=== PATIENT | female | born 1935 | race American Indian/Alaskan Native ===

== ENCOUNTER 2018-01-10 03:00 | Inpatient (IN) | payer MEDICARE ==
[2018-01-10] MEDS ORDERED: BENADRYL PO ONE (03:10)
[2018-01-10] MEDS ORDERED: PEPCID IV ONE (03:10)
--- NOTE | 2018-01-10 03:25 | Emergency Department Report ---
HPI - General Time Seen by Provider: 01/10/18 03:10 - HPI HPI: Room 23 The patient is an 82-year-old female presented with the chief complaint of lip swelling. The patient takes lisinopril states this evening at approximately 21: 30 after drinking a glass of water she began noticing swelling of her lips. The patient states over time the swelling worsen or did not improve prompting her to come to the emergency department. Patient denies shortness of breath or pain of any type Location: Lips Duration: Constant since 21:30 Quality: Swelling/angioedema Severity: Moderate Modifying factors: [see above] Context: [see above] Mode of transportation: [not driving] ED Past Medical Hx - Past Medical History Hx Hypertension: Yes Hx Diabetes: Yes - Surgical History Additional Surgical History: Valvuloplasty (patient uncertain which valve) - Family History Family history: no significant - Social History Smoking Status: Never Smoker Substance Use Type: None - Medications Home Medications: Home Medications Medication Instructions Recorded Confirmed Last Taken Type Aspirin [[place] Aspirin] 11/14/13 11/14/13 Unknown History Esomeprazole Magnesium [Nexium] 11/14/13 11/14/13 Unknown History Hydrochlorothiazide 25 mg PO QDAY 11/14/13 11/14/13 Unknown History Lisinopril [Zestril TAB] 40 mg PO QDAY 11/14/13 11/14/13 Unknown History metFORMIN [Glucophage] 1,000 mg PO BID 11/14/13 11/14/13 Unknown History HYDROcodone/APAP 5-325 [[place] 1 each PO Q6HR PRN #10 tablet 11/15/13 Unknown Rx 5-325 mg TAB] Ibuprofen [Motrin] 800 mg PO TID PRN #20 tablet 11/15/13 Unknown Rx ED Review of Systems ROS: Stated complaint: ALLERGIC REACTION Other details as noted in HPI ENT: other (lip swelling) Respiratory: denies: shortness of breath Physical Exam - Physical Exam Physical Exam: GENERAL: The patient is well-developed well-nourished female lying on stretcher not appearing to be in acute distress with obvious lip swelling. [] HEENT: Normocephalic. Atraumatic. Extraocular motions are intact. Moderate edema of both lips. Oropharynx clear. Uvula midline NECK: Supple. No stridor CHEST/LUNGS: Clear to auscultation. There is no respiratory distress noted. HEART/CARDIOVASCULAR: Regular. There is no tachycardia. There is a 4/6 systolic murmur ABDOMEN: Abdomen is soft, nontender. Patient has normal bowel sounds. There is no abdominal distention. SKIN: There is no rash. There is no diaphoresis. NEURO: The patient is awake, alert, and oriented. The patient is cooperative. The patient has normal speech MUSCULOSKELETAL: There is no evidence of acute injury. ED Medical Decision Making - Lab Data Result diagrams: 01/10/18 03:23 01/10/18 03:23 Laboratory Tests 01/10/18 01/10/18 03:23 03:23 WBC 8.6 RBC 4.33 Hgb 12.2 Hct 35.9 MCV 83 MCH 28 MCHC 34 RDW 15.5 H Plt Count 169 Lymph % (Auto) 35.4 H Wheeler % (Auto) 6.2 Eos % (Auto) 1.6 Baso % (Auto) 0.8 Lymph # 3.0 Wheeler # 0.5 Eos # 0.1 Baso # 0.1 Seg Neutrophils % 56.0 Seg Neutrophils # 4.8 Sodium 135 L Potassium 3.6 Chloride 93.5 L Carbon Dioxide 27 Anion Gap 18 BUN 13 Creatinine 0.7 Estimated GFR > 60 BUN/Creatinine Ratio 19 Glucose 113 H Calcium 9.2 - Differential Diagnosis angioedema Critical care attestation.: If time is entered above; I have spent that time in minutes in the direct care of this critically ill patient, excluding procedure time. ED Disposition Clinical Impression: Angioedema of lips Disposition: OP ADMIT IP TO THIS HOSP Is pt being admited?: Yes Does the pt Need Aspirin: No Condition: Fair Time of Disposition: 03:57 (hospitalist notified (Dr. Cyn Laura))
[2018-01-10 03:33] LABS: Basophils # (Auto) 0.1 K/mm3 (0.0-0.1); Basophils % (Auto) 0.8 % (0.0-1.8); Eosinophils # (Auto) 0.1 K/mm3 (0.0-0.4); Eosinophils % (Auto) 1.6 % (0.0-4.3); Hematocrit 35.9 % (30.3-42.9); Hemoglobin 12.2 gm/dl (10.1-14.3); Lymphocytes % (Auto) 35.4 % (13.4-35.0); Mean Corpuscular HGB Conc 34 % (30-34); Mean Corpuscular Hemoglobin 28 pg (28-32); Mean Corpuscular Volume 83 fl (79-97); Monocytes # (Auto) 0.5 K/mm3 (0.0-0.8); Monocytes % (Auto) 6.2 % (0.0-7.3); Platelet Count 169 K/mm3 (140-440); Red Blood Count 4.33 M/mm3 (3.65-5.03); Red Cell Distribution Width 15.5 % (13.2-15.2)
[2018-01-10 03:54] LABS: BUN/Creatinine Ratio 19; Blood Urea Nitrogen 13 mg/dL (7-17); Calcium 9.2 mg/dL (8.4-10.2); Hemolysis Index 4
[2018-01-10] MEDS ORDERED: SODIUM CHLORIDE FLUSH SYRINGE 10 ML IV PRN (05:42)
[2018-01-10] MEDS ORDERED: BENADRYL IV ONE (05:42)
[2018-01-10] MEDS ORDERED: TYLENOL PO PRN (05:42)
[2018-01-10] MEDS ORDERED: ZOFRAN IV PRN (05:42)
[2018-01-10] MEDS ORDERED: BENADRYL ONE (05:52)
[2018-01-10] MEDS ORDERED: BENADRYL IV PRN (05:54)
--- NOTE | 2018-01-10 05:59 | History and Physical Report ---
History of Present Illness Date of examination: 01/10/18 History of present illness: 82-year-old woman with a history of hypertension, diabetes comes emergency room because on 9:30 last night she was drinking water and removed so funny. The lip became swollen, she came to the emergency room for evaluation. No difficulty swallowing, shortness of breath, and handling her saliva Review of systems Constitutional: no weight loss, chills Ears, eyes, nose, mouth and throat: no nasal congestion, no nasal discharge, no sinus pressure, no vision change, no red eye. Neck: No neck pain or rigidity. Cardiovascular: no chest pain, palpitations Respiratory: No cough, shortness of breath Gastrointestinal: no abdominal pain, hematochezia Genitourinary : no dysuria, frequency , no hematuria Musculoskeletal: no joint swelling or muscle ache Integumentary: no rash, no pruritis Neurological: no parathesias, no numbness, no focal weakness Endocrine: no cold or heat intolerance, no polyuria or polydipsia Hematologic/Lymphatic: no easy bruising, no easy bleeding, no gland swelling Allergic/Immunologic: no urticaria, no angioedema. PAST MEDICAL HISTORY: Hypertension, diabetes PAST SURGICAL HISTORY: None SOCIAL HISTORY: Denies alcohol, tobacco, drugs FAMILY HISTORY:l hypertension Medications and Allergies Allergies Allergy/AdvReac Type Severity Reaction Status Date / Time No Known Allergies Allergy Unverified 11/14/13 21:38 Home Medications Medication Instructions Recorded Confirmed Last Taken Type Aspirin [[place] Aspirin] 11/14/13 11/14/13 Unknown History Esomeprazole Magnesium [Nexium] 11/14/13 11/14/13 Unknown History Hydrochlorothiazide 25 mg PO QDAY 11/14/13 11/14/13 Unknown History Lisinopril [Zestril TAB] 40 mg PO QDAY 11/14/13 11/14/13 Unknown History metFORMIN [Glucophage] 1,000 mg PO BID 11/14/13 11/14/13 Unknown History HYDROcodone/APAP 5-325 [[place] 1 each PO Q6HR PRN #10 tablet 11/15/13 Unknown Rx 5-325 mg TAB] Ibuprofen [Motrin] 800 mg PO TID PRN #20 tablet 11/15/13 Unknown Rx Active Meds: Active Medications Acetaminophen (Tylenol) 650 mg PO Q4H PRN PRN Reason: Pain MILD(1-3)/Fever >100.5/[place] Diphenhydramine HCl (Benadryl) 25 mg IV Q6H PRN PRN Reason: Itching Enoxaparin Sodium (Lovenox) 40 mg SUB-Q QDAY DAYAMI Famotidine (Pepcid) 20 mg IV BID DAYAMI Methylprednisolone Sodium Succinate (Solu-Medrol) 125 mg IV Q6H DAYAMI Ondansetron HCl (Zofran) 4 mg IV Q8H PRN PRN Reason: Nausea And Vomiting Sodium Chloride (Sodium Chloride Flush Syringe 10 Ml) 10 ml IV BID DAYAMI Sodium Chloride (Sodium Chloride Flush Syringe 10 Ml) 10 ml IV PRN PRN PRN Reason: LINE FLUSH Exam - Physical Exam Narrative exam: Gen. appearance: Patient lying in bed, no apparent distress HEENT: Normocephalic, atraumatic, pupils equally round and reactive to light, extraocular movement intact, and no sclericterus,. No JVD or thyromegaly or nodule,neck supple, no carotid bruit ,mucous membranes moist, no exudate or erythema, upper lip swollen Heart: S1, S2, regular rate and rhythm Lungs: Clear to auscultation bilaterally, breathing comfortable Abdomen: Positive bowel sounds, nontender, nondistended, no organomegaly Extremity: No edema, cyanosis, clubbing Skin: No rash, nodules, warm, dry Neuro: Oriented 3, cranial nerves II-12 intact, speech is fluent, motor and sensory intact - Constitutional Vitals: Temp Pulse Resp BP Pulse Ox 98.6 F 71 16 129/78 99 01/10/18 03:18 01/10/18 04:00 01/10/18 04:18 01/10/18 04:00 01/10/18 04:18 Results - Labs CBC & Chem 7: 01/10/18 03:23 01/10/18 03:23 Labs: Abnormal lab results 01/10/18 01/10/18 Range/Units 03:23 03:23 RDW 15.5 H (13.2-15.2) % Lymph % (Auto) 35.4 H (13.4-35.0) % Sodium 135 L (137-145) mmol/L Chloride 93.5 L (98-107) mmol/L Glucose 113 H (65-100) mg/dL Assessment and Plan Assessment Angioedema due to ACEI Hypertension Plan Admit to medicine Start high-dose steroids, Benadryl, Pepcid DVT prophylaxis
[2018-01-10] MEDS ORDERED: D50W (25GM) Syringe IV PRN (06:01)
[2018-01-10] MEDS: LOVENOX SUB-Q SCH (11:06)
[2018-01-10] MEDS: PEPCID IV SCH ×2 (11:07→23:15)
[2018-01-10] MEDS: HCTZ PO SCH (11:07)
[2018-01-10] MEDS: SODIUM CHLORIDE FLUSH SYRINGE 10 ML IV SCH ×2 (11:08→23:16)
[2018-01-10] MEDS: GLUCOPHAGE PO SCH ×2 (16:48)
[2018-01-10] MEDS ORDERED: MILK OF MAGNESIA PO PRN (22:18)
[2018-01-11 06:40] LABS: Basophils % (Auto) 0.1 % (0.0-1.8); Hematocrit 35.4 % (30.3-42.9); Hemoglobin 12.1 gm/dl (10.1-14.3); Lymphocytes # (Auto) 1.6 K/mm3 (1.2-5.4); Lymphocytes % (Auto) 11.6 % (13.4-35.0); Mean Corpuscular HGB Conc 34 % (30-34); Mean Corpuscular Hemoglobin 28 pg (28-32); Mean Corpuscular Volume 82 fl (79-97); Monocytes # (Auto) 0.7 K/mm3 (0.0-0.8); Monocytes % (Auto) 4.9 % (0.0-7.3); Platelet Count 186 K/mm3 (140-440); Red Blood Count 4.33 M/mm3 (3.65-5.03); Red Cell Distribution Width 15.6 % (13.2-15.2)
[2018-01-11 06:58] LABS: BUN/Creatinine Ratio 20; Blood Urea Nitrogen 16 mg/dL (7-17); Calcium 9.1 mg/dL (8.4-10.2); Hemolysis Index 13
--- NOTE | 2018-01-11 07:11 | Discharge Summary ---
Providers - Providers Date of Admission: 01/10/18 05:42 Attending physician: REMI CABELLO MD Primary care physician: SYLVESTER STEPHENS Hospitalization Condition: Fair Hospital course: 82-year-old woman with a history of hypertension, diabetes comes emergency room because on 9:30 last night she was drinking water and removed so funny. The lip became swollen, she came to the emergency room for evaluation. No difficulty swallowing, shortness of breath, and handling her saliva Assessment Angioedema due to ACEI Hypertension Plan Admit to medicine Start high-dose steroids, Benadryl, Pepcid DVT prophylaxis Disposition: DC- TO HOME OR SELFCARE Time spent for discharge: 33 minutes Core Measure Documentation - Palliative Care Palliative Care/ Comfort Measures: Not Applicable - Core Measures Any of the following diagnoses?: none Exam - Constitutional Vitals: Temp Pulse Resp BP Pulse Ox 98.1 F 74 18 112/58 99 01/11/18 04:54 01/11/18 05:38 01/11/18 04:54 01/11/18 04:54 01/11/18 04:54 General appearance: Present: no acute distress, well-nourished - EENT Eyes: Present: PERRL ENT: hearing intact, clear oral mucosa - Neck Neck: Present: supple, normal ROM - Respiratory Respiratory effort: normal Respiratory: bilateral: CTA - Cardiovascular Heart Sounds: Present: S1 & S2. Absent: rub, click - Extremities Extremities: pulses symmetrical, No edema Peripheral Pulses: within normal limits - Abdominal General gastrointestinal: Present: soft, non-tender, non-distended, normal bowel sounds Female genitourinary: Present: normal - Integumentary Integumentary: Present: clear, warm, dry - Musculoskeletal Musculoskeletal: gait normal, strength equal bilaterally - Psychiatric Psychiatric: appropriate mood/affect, intact judgment & insight - Neurologic Neurologic: CNII-XII intact, moves all extremities Plan Follow up with: SYLVESTER STEPHENS MD [Primary Care Provider] - 7 Days Prescriptions: amLODIPine [Norvasc] 10 mg PO DAILY #30 tab Famotidine [Pepcid] 20 mg PO BID #14 tablet HYDROcodone/APAP 5-325 [[place] 5-325 mg TAB] 1 each PO Q6HR PRN #10 tablet PRN Reason: Pain
[2018-01-11] MEDS: GLUCOPHAGE PO SCH ×2 (09:23→16:58)
[2018-01-11] MEDS: LOVENOX SUB-Q SCH (09:23)
[2018-01-11] MEDS: HCTZ PO SCH (09:23)
[2018-01-11] MEDS: SODIUM CHLORIDE FLUSH SYRINGE 10 ML IV SCH (09:24)
[2018-01-11] MEDS: PEPCID IV SCH (09:24)
[2018-01-11 16:55] VITALS: BP 100/45
[2018-01-11] MEDS ORDERED: PEPCID PO SCH (22:00)
== END 2018-01-11 18:59 | disposition home or self-care (01) | DRG 916 ==
LOC: ED 03:00 → 4A 05:42
PROVIDERS: ADMIT Internal Medicine; ATTEND Internal Medicine
DX: T78.3XXA Angioneurotic edema, initial encounter (principal); I10 Essential (primary) hypertension; E11.9 Type 2 diabetes mellitus without complications; T46.4X5A Adverse effect of angiotensin-converting-enzyme inhibitors, initial encounter; Z79.82 Long term (current) use of aspirin; Z79.84 Long term (current) use of oral hypoglycemic drugs; Z79.899 Other long term (current) drug therapy; Z82.49 Family history of ischemic heart disease and other diseases of the circulatory system; Y92.89 Other specified places as the place of occurrence of the external cause
CPT/HCPCS: 36415; 80048; 82962; 83036; 85025; 96374; 96375; J1200; J1650; J2930

== ENCOUNTER 2018-01-13 14:40 | Emergency (ER) | payer MEDICARE ==
[2018-01-13 15:47] VITALS: BP 116/60
[2018-01-13] MEDS ORDERED: BENADRYL PO ONE (18:41)
[2018-01-13] MEDS ORDERED: KEFLEX PO ONE (18:41)
[2018-01-13] MEDS ORDERED: TYLENOL PO ONE (18:41)
--- NOTE | 2018-01-13 19:40 | XRay Report ---
FINAL REPORT EXAM: XR HAND 2V RT HISTORY: redness and swelling of right hand/wrist TECHNIQUE: AP and lateral views of the right hand PRIORS: None. FINDINGS: There is no evidence for acute fracture or dislocation. There is mild swelling over the metacarpal heads dorsally. No radiopaque foreign bodies are seen. Bony mineralization is normal. No evidence for cortical erosion or focal lucency is seen. Significant joint space narrowing at all of the interphalangeal joints is seen. Significant overhanging dorsal spurring is present at all of the DIP joints. There is moderate narrowing of the radiocarpal joint. Findings related to osteoarthritis. IMPRESSION: No acute bony abnormality noted. Soft tissue swelling over the metacarpal heads dorsally. 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
--- NOTE | 2018-01-13 20:34 | Emergency Department Report ---
HPI - General Chief Complaint: Allergic Reaction Time Seen by Provider: 01/13/18 18:17 - HPI HPI: 82-year-old female comes in with complaint of right hand swelling. Patient reports that she was admitted to [facility] and discharged a couple of days. Has a past medical history of diabetes and hypertension. Patient reports that the swelling has started to streak with pain. She was discharged on Pepcid [place] amlodipine and prednisone on the 12th of this month. Patient is followed by [facility]. ED Past Medical Hx - Past Medical History Previous Medical History?: Yes Hx Hypertension: Yes Hx Diabetes: Yes - Surgical History Past Surgical History?: Yes Additional Surgical History: Valvuloplasty (patient uncertain which valve) - Social History Smoking Status: Never Smoker Substance Use Type: Prescribed - Medications Home Medications: Home Medications Medication Instructions Recorded Confirmed Last Taken Type Aspirin [[place] Aspirin] 81 mg PO DAILY 11/14/13 01/11/18 Unknown History Esomeprazole Magnesium [NexIUM] 40 mg PO DAILY 11/14/13 01/11/18 Unknown History Hydrochlorothiazide 25 mg PO QDAY 11/14/13 01/11/18 Unknown History metFORMIN [Glucophage] 1,000 mg PO BID 11/14/13 01/11/18 Unknown History Ibuprofen [Motrin 800 MG tab] 800 mg PO TID PRN #20 tablet 11/15/13 01/11/18 Unknown Rx Famotidine [Pepcid] 20 mg PO BID #14 tablet 01/11/18 Unknown Rx HYDROcodone/APAP 5-325 [[place] 1 each PO Q6HR PRN #10 tablet 01/11/18 Unknown Rx 5-325 mg TAB] amLODIPine [Norvasc] 10 mg PO DAILY #30 tab 01/11/18 Unknown Rx predniSONE [Deltasone] 20 mg PO QDAY #5 tab 01/11/18 Unknown Rx Cephalexin [Keflex] 500 mg PO BID #20 capsule 01/13/18 Unknown Rx ED Review of Systems ROS: Stated complaint: ALLERGIC REACTION Other details as noted in HPI Constitutional: denies: chills, fever Eyes: denies: eye pain, eye discharge, vision change ENT: denies: ear pain, throat pain Respiratory: denies: cough, shortness of breath, wheezing Cardiovascular: denies: chest pain, palpitations Endocrine: no symptoms reported Gastrointestinal: denies: abdominal pain, nausea, diarrhea Genitourinary: denies: urgency, dysuria, discharge Musculoskeletal: denies: back pain, joint swelling, arthralgia Skin: other (swelling to the right dorsal hand with mild streaking) Neurological: denies: headache, weakness, paresthesias Psychiatric: denies: anxiety, depression Hematological/Lymphatic: denies: easy bleeding, easy bruising Physical Exam - Physical Exam Vital Signs: Vital Signs 01/13/18 01/13/18 15:38 18:55 Temperature 97.4 F L Pulse Rate 61 Respiratory 18 20 Rate Blood Pressure 116/60 O2 Sat by Pulse 100 Oximetry Physical Exam: GENERAL: Alert and oriented x3, no apparent distress, Normal Gait, atraumatic. HEAD: Head is normocephalic and a-traumatic. EYES: Extra ocular muscles are intact. Pupils are equal, round, and reactive to light and accommodation. MOUTH:Mouth is well hydrated and without lesions. Tonsils nonerythematous or swollen, Uvula midline, Tongue not elevated. Mucous membranes are moist. Posterior pharynx clear, no exudate or lesions. Patent airways. NECK: Supple. Non edematous, No carotid bruits. No lymphadenopathy or thyromegaly. LUNGS: Symetrical with respiration, No wheezing, no rales or crackles, CTAB. HEART: S1, S2 present, regular rate and rhythm without murmur, no rubs, no gallops. EXTREMITIES/MUSCULOSKELETAL: No cyanosis, clubbing, rash, lesions or edema. Full ROM bilaterally. UE/LE Pulses 2+ bilaterally. LE and UE 5+ strength bilaterally right hand swelling with mild warmness. Patient fully range of motion of her hand able to make a fist flexion and extension within normal limits. NEUROLOGIC: No focal Deficit, Cranial nerves II through XII are grossly intact. No loss of sensation, No facial droop, Negative rhomberg. PSYCHIATRIC: Mood is congruent with affect, denies suicidal or homicidal ideations. SKIN: Warm and dry, No lesions, No ulceration or induration present ED Course Vital Signs 01/13/18 01/13/18 15:38 18:55 Temperature 97.4 F L Pulse Rate 61 Respiratory 18 20 Rate Blood Pressure 116/60 O2 Sat by Pulse 100 Oximetry ED Medical Decision Making - Medical Decision Making Patient has been evaluated by this provider in fast track as well as Dr. Romeo. We obtained an x-ray of her right hand. She was given Keflex and pain medication during her visit. Discussed the patient that she needs to follow up with her primary care provider which is [facility] within 3-5 days. Discussed patient to continue taking her chronic medications. Patient verbalized understanding Critical care attestation.: If time is entered above; I have spent that time in minutes in the direct care of this critically ill patient, excluding procedure time. ED Disposition Clinical Impression: Cellulitis and abscess of hand Disposition: TO HOME OR SELFCARE Is pt being admited?: No Does the pt Need Aspirin: No Condition: Stable Instructions: Cellulitis (ED) Additional Instructions: Please complete antibiotics as prescribed. Please continue with all chronic medication as prescribed. Please follow up with her primary care provider within 3-5 days for follow-up evaluation. Prescriptions: Cephalexin [Keflex] 500 mg PO BID #20 capsule Referrals: PRIMARY CARE, [Primary Care Provider] - 3-5 Days Forms: Accompanied Note
--- NOTE | 2018-01-13 22:08 | Emergency Department Report ---
Chief Complaint: Allergic Reaction Stated Complaint: ALLERGIC REACTION Time Seen by Provider: 01/13/18 18:17 - HPI History of Present Illness: The patient is a 82-year-old female presents for evaluation of right forearm and hand pain. The patient reports 1 day of right forearm and hand pain, associated with redness and mild swelling. She states that her symptoms began one day after being discharged from the hospital for treatment of angioedema. She admits to receiving IV lines in the right arm. She denies trauma to the right hand or forearm, paresthesias, motor deficits, penetrating wound. - Exam Vital Signs: Vital Signs 01/13/18 01/13/18 15:38 18:55 Temperature 97.4 F L Pulse Rate 61 Respiratory 18 20 Rate Blood Pressure 116/60 O2 Sat by Pulse 100 Oximetry MSE screening note: Focused history and physical exam performed. Due to findings the following was ordered: ED Disposition for MSE Clinical Impression: Cellulitis and abscess of hand Disposition: DC-01 TO HOME OR SELFCARE Condition: Stable Instructions: Cellulitis (ED) Additional Instructions: Please complete antibiotics as prescribed. Please continue with all chronic medication as prescribed. Please follow up with her primary care provider within 3-5 days for follow-up evaluation. Prescriptions: Cephalexin [Keflex] 500 mg PO BID #20 capsule Referrals: PRIMARY CARE, [Primary Care Provider] - 3-5 Days Forms: Accompanied Note
== END 2018-01-13 20:45 | disposition home or self-care (01) ==
LOC: ED 14:40
DX: L03.113 Cellulitis of right upper limb (principal); L02.511 Cutaneous abscess of right hand; I10 Essential (primary) hypertension; E11.9 Type 2 diabetes mellitus without complications; Z79.82 Long term (current) use of aspirin
CPT/HCPCS: 82962; 99283